=== PATIENT | male | born 1965 | race American Indian/Alaskan Native ===

== ENCOUNTER 2021-08-19 10:51 | Inpatient (IN) | payer OTHER, MEDICARE ==
[2021-08-19] MEDS ORDERED: cloNIDine 0.2 MG TAB PO ONE (11:40)
--- NOTE | 2021-08-19 11:45 | Emergency Department Report ---
HPI - General Chief Complaint: Weakness Time Seen by Provider: 08/19/21 11:25 - [facility] HPI: Room 19 The patient is a 56-year-old male present with a chief complaint of fatigue. Patient is a poor historian and falls asleep frequently during the interview s tates that he came to the emergency department because he has felt diffusely weak for the past 2 to 3 days. Patient denies any form of pain including abdominal pain or chest pain. Patient denies fever cough or shortness of breath. Patient states he has been vaccinated against Covid receiving the [place] vaccine but he is unable to tell me when. Patient does have a history end-stage renal disease and states he was last dialyzed yesterday ED Past Medical Hx - Past Medical History Previous Medical History?: Yes Hx Hypertension: Yes Hx Renal Disease: Yes (ESRD, HD Q , , sat Dr Vázquez) Hx Psychiatric Treatment: Yes (PTSD) - Family History Family history: no significant - Social History Smoking Status: Never Smoker Substance Use Type: None - Medications Home Medications: Home Medications Medication Instructions Recorded Confirmed Last Taken Type Acetaminophen/Codeine [Tylenol #3] 1 tab PO Q4-6H PRN #20 tab 01/24/15 Unknown Rx methOCARBAMOL [Robaxin] 750 mg PO Q8H PRN #21 tablet 01/24/15 Unknown Rx ED Review of Systems ROS: Stated complaint: weakness Other details as noted in HPI Constitutional: malaise, weakness. denies: fever Eyes: denies: eye pain Respiratory: denies: no symptoms reported, cough, shortness of breath Cardiovascular: denies: chest pain Endocrine: no symptoms reported Gastrointestinal: denies: abdominal pain Genitourinary: denies: testicular pain Musculoskeletal: denies: back pain Neurological: denies: headache Physical Exam - Physical Exam Vital Signs: Vital Signs 08/19/21 11:07 Temperature 98.2 F Pulse Rate 90 Respiratory 16 Rate Blood Pressure 222/111 [Right] O2 Sat by Pulse 98 Oximetry Physical Exam: GENERAL: The patient is well-developed well-nourished male lying on stretcher appearing fatigued requiring frequent reawakening. [] HEENT: Normocephalic. Atraumatic. Extraocular motions are intact. Patient has moist mucous membranes. NECK: Supple. No meningitic signs are noted. Trachea midline CHEST/LUNGS: Clear to auscultation. There is no respiratory distress noted. HEART/CARDIOVASCULAR: Regular. There is no tachycardia. There is no gallop rub or murmur. ABDOMEN: Abdomen is soft, nontender. Patient has normal bowel sounds. There is no abdominal distention. SKIN: There is no rash. There is no edema. There is no diaphoresis. NEURO: The patient is asleep but awakens to voice and light touch. Patient frequently falls back to sleep in the middle of answering questions. The patient is cooperative. The patient has no focal neurologic deficits. The patient has normal speech. Cranial nerves II through XII grossly intact MUSCULOSKELETAL: There is no evidence of acute injury. ED Course Vital Signs 08/19/21 11:07 Temperature 98.2 F Pulse Rate 90 Respiratory 16 Rate Blood Pressure 222/111 [Right] O2 Sat by Pulse 98 Oximetry ED Medical Decision Making - Lab Data Result diagrams: 08/19/21 12:04 08/19/21 12:04 Laboratory Tests 08/19/21 08/19/21 08/19/21 12:04 12:04 12:04 WBC 4.4 L RBC 3.41 L Hgb 10.6 L Hct 32.6 L MCV 96 H MCH 31 MCHC 33 RDW 16.3 H Plt Count 102 L Lymph % (Auto) 15.2 [place] % (Auto) 7.7 H Eos % (Auto) 1.7 Baso % (Auto) 1.0 Lymph # (Auto) 0.7 L [place] # (Auto) 0.3 Eos # (Auto) 0.1 Baso # (Auto) 0.0 Seg Neutrophils % 74.4 H Seg Neutrophils # 3.3 Sodium 122 L Potassium 5.2 H Chloride 90.6 L Carbon Dioxide 14 L Anion Gap 23 BUN 32 H Creatinine 8.3 H Estimated GFR 8 BUN/Creatinine Ratio 4 Glucose 75 Lactic Acid 0.60 L Calcium 8.4 Magnesium Total Bilirubin 0.60 AST 14 ALT < 5 L Alkaline Phosphatase 85 Ammonia Total Creatine Kinase 126 CK-MB (CK-2) 6.0 H CK-MB (CK-2) Rel Index 4.7 H Troponin T 0.165 H* Total Protein 7.3 Albumin 3.7 L Albumin/Globulin Ratio 1.0 Triglycerides 68 Cholesterol 111 LDL Cholesterol Direct 21 L HDL Cholesterol 79 H Cholesterol/HDL Ratio 1.40 TSH Free T4 Plasma/Serum Alcohol 08/19/21 08/19/2108/19/21 12:04 12:04 12:04 WBC RBC Hgb Hct MCV MCH MCHC RDW Plt Count Lymph % (Auto) [place] % (Auto) Eos % (Auto) Baso % (Auto) Lymph # (Auto) [place] # (Auto) Eos # (Auto) Baso # (Auto) Seg Neutrophils % Seg Neutrophils # Sodium Potassium Chloride Carbon Dioxide Anion Gap BUN Creatinine Estimated GFR BUN/Creatinine Ratio Glucose Lactic Acid Calcium Magnesium 2.00 Total Bilirubin AST ALT Alkaline Phosphatase Ammonia Total Creatine Kinase CK-MB (CK-2) CK-MB (CK-2) Rel Index Troponin T Total Protein Albumin Albumin/Globulin Ratio Triglycerides Cholesterol LDL Cholesterol Direct HDL Cholesterol Cholesterol/HDL Ratio TSH 0.483 Free T4 0.92 Plasma/Serum Alcohol < 0.01 08/19/21 12:04 WBC RBC Hgb Hct MCV MCH MCHC RDW Plt Count Lymph % (Auto) [place] % (Auto) Eos % (Auto) Baso % (Auto) Lymph # (Auto) [place] # (Auto) Eos # (Auto) Baso # (Auto) Seg Neutrophils % Seg Neutrophils # Sodium Potassium Chloride Carbon Dioxide Anion Gap BUN Creatinine Estimated GFR BUN/Creatinine Ratio Glucose Lactic Acid Calcium Magnesium Total Bilirubin AST ALT Alkaline Phosphatase Ammonia 45.0 Total Creatine Kinase CK-MB (CK-2) CK-MB (CK-2) Rel Index Troponin T Total Protein Albumin Albumin/Globulin Ratio Triglycerides Cholesterol LDL Cholesterol Direct HDL Cholesterol Cholesterol/HDL Ratio TSH Free T4 Plasma/Serum Alcohol - EKG Data -: EKG Interpreted by Pa EKG shows normal: sinus rhythm, axis Rate: normal (82 bpm) - EKG Data When compared to previous EKG there are: previous EKG unavailable Interpretation: other (No ischemic changes seen) - Differential Diagnosis Metabolic encephalopathy, hypertensive urgency, Critical care attestation.: If time is entered above; I have spent that time in minutes in the direct care of this critically ill patient, excluding procedure time. ED Disposition Clinical Impression: Hyponatremia, Altered mental status, Hypertension Disposition: ADMITTED INPATIENT Is pt being admited?: Yes Does the pt Need Aspirin: Yes Condition: Stable Instructions: Hypertension (ED) Referrals: PRIMARY CARE,MD [Primary Care Provider] - 3-5 Days Time of Disposition: 14:54 (Hospitalist notified (Dr. Sweeney))
[2021-08-19 12:33] LABS: Eosinophils # (Auto) 0.1 K/mm3 (0.0-0.4); Eosinophils % (Auto) 1.7 % (0.0-4.3); Hematocrit 32.6 % (35.5-45.6); Hemoglobin 10.6 gm/dl (11.8-15.2); Lymphocytes # (Auto) 0.7 K/mm3 (1.2-5.4); Lymphocytes % (Auto) 15.2 % (13.4-35.0); Mean Corpuscular HGB Conc 33 % (32-34); Mean Corpuscular Volume 96 fl (84-94); Monocytes # (Auto) 0.3 K/mm3 (0.0-0.8); Monocytes % (Auto) 7.7 % (0.0-7.3); Platelet Count 102 K/mm3 (140-440); Red Blood Count 3.41 M/mm3 (3.65-5.03); Red Cell Distribution Width 16.3 % (13.2-15.2)
--- NOTE | 2021-08-19 12:33 | Cat Scan Report ---
CT BRAIN: 08/19/2021 INDICATION / CLINICAL INFORMATION: Altered mental status. COMPARISON: None available. FINDINGS: BRAIN/INTRACRANIAL STRUCTURES: Unenhanced CT images of the brain demonstrate no evidence of acute abn ormality. Ventricles and sulci are somewhat prominent in size for a patient of this age, consistent with some u nderlying diffuse cerebral atrophy. There is no evidence of acute large vessel territory ischemic injury, hemorrhage, or mass. There are no abnormal extra-axial fluid collections. Atherosclerotic vascular calcifications are present in the distal internal carotid arteries. EXTRACRANIAL STRUCTURES: Unremarkable. IMPRESSION: No acute abnormality. All CT scans at this location are performed using dose reduction to ALARA by means of automated expos ure control. Signer Name: Rohan Pickens MD Signed: 08/19/2021 12:29 PM Workstation Name: [id number]
[2021-08-19 12:44] LABS: Albumin 3.7 g/dL (3.9-5); Blood Urea Nitrogen 32 mg/dL (9-20); Calcium 8.4 mg/dL (8.4-10.2); Hemolysis Index 47
[2021-08-19 12:45] LABS: Alanine Aminotransferase < 5 units/L (7-56); BUN/Creatinine Ratio 4
[2021-08-19 12:48] LABS: Free T4 (Free Thyroxine) 0.92 ng/dL (0.76-1.46)
[2021-08-19 13:05] LABS: HDL Cholesterol 79 mg/dL (40-59); LDL Cholesterol,Direct 21 mg/dL (50-130)
[2021-08-19] MEDS ORDERED: SODIUM CHLORIDE 0.9% 1000 ML 1,000 ML IV ONE ×2 (13:39)
[2021-08-19] MEDS ORDERED: SODIUM CHLORIDE 0.9% 500 ML 500 ML IV ONE (14:32)
[2021-08-19] MEDS ORDERED: ASPIRIN 325 MG TAB PO ONE (15:31)
[2021-08-19] MEDS: hydrALAZINE 20 MG/1 ML INJ IV PRN (21:56)
--- NOTE | 2021-08-19 23:43 | History and Physical Report ---
History of Present Illness Date of examination: 08/19/21 Date of admission: 08/19/21 14:53 Chief complaint: Severe weakness for 1 week History of present illness: The patient is a 56-year-old male present with a chief complaint of fatigue. Patient is a poor historian and falls asleep frequently during the interview states that he came to the emergency department because he has felt diffusely weak for the past 2 to 3 days. Patient denies any form of pain including abdominal pain or chest pain. Patient denies fever cough or shortness of breath. Patient states he has been vaccinated against Covid receiving the [place] vaccine but he is unable to tell me when. Patient does have a history end-stage renal disease and states he was last dialyzed yesterday - Past Medical History --Previous Medical History?: Yes --Hypertension: Yes --Renal Disease: Yes (ESRD, HD Q , , sat Dr Vázquez) --Psychiatric Treatment: Yes (PTSD) - Family History --Family history: no significant - Social History --Smoking Status: Never Smoker --Substance Use Type: None - Medications Home Medications: Home Medications Medication Instructions Recorded Confirmed Last Taken Type Acetaminophen/Codeine [Tylenol #3] 1 tab PO Q4-6H PRN #20 tab 01/24/15 Unknown Rx methOCARBAMOL [Robaxin] 750 mg PO Q8H PRN #21 tablet 01/24/15 Unknown Rx Review of Systems ROS: Stated complaint: weakness Other details as noted in HPI Constitutional: malaise, weakness. denies: fever Eyes: denies: eye pain Respiratory: denies: no symptoms reported, cough, shortness of breath Cardiovascular: denies: chest pain Endocrine: no symptoms reported Gastrointestinal: denies: abdominal pain Genitourinary: denies: testicular pain Musculoskeletal: denies: back pain Neurological: denies: headache Medications and Allergies Allergies Allergy/AdvReac Type Severity Reaction Status Date / Time ampicillin AdvReac Unknown Verified 01/24/15 20:35 Home Medications Medication Instructions Recorded Confirmed Last Taken Type Acetaminophen/Codeine [Tylenol #3] 1 tab PO Q4-6H PRN #20 tab 01/24/15 Unknown Rx methOCARBAMOL [Robaxin] 750 mg PO Q8H PRN #21 tablet 01/24/15 Unknown Rx Active Meds: Active Medications Hydralazine HCl (Hydralazine 20 Mg/1 Ml Inj) 10 mg IV Q6HR PRN PRN Reason: Hypertension Last Admin: 08/19/21 21:56 Dose: 10 mg Documented by: Exam - Constitutional Vitals: Temp Pulse Resp BP Pulse Ox 98.2 F 88 16 210/105 92 08/19/21 11:07 08/19/21 21:30 08/19/21 21:30 08/19/21 21:30 08/19/21 21:30 General appearance: Present: no acute distress, well-nourished - EENT Eyes: Present: PERRL ENT: hearing intact, clear oral mucosa - Neck Neck: Present: supple, normal ROM - Respiratory Respiratory effort: normal Respiratory: bilateral: CTA - Cardiovascular Heart rate: 78 Rhythm: regular Heart Sounds: Present: S1 & S2. Absent: rub, click - Extremities Extremities: pulses symmetrical, No edema Peripheral Pulses: within normal limits - Abdominal General gastrointestinal: Present: soft, non-tender, non-distended, normal bowel sounds Male genitourinary: Present: normal - Integumentary Integumentary: Present: clear, warm, dry - Musculoskeletal Musculoskeletal: gait normal, strength equal bilaterally - Psychiatric Psychiatric: appropriate mood/affect, intact judgment & insight - Neurologic Neurologic: CNII-XII intact, moves all extremities - Allied Health Allied health notes reviewed: nursing, case management HEART Score - HEART Score Troponin: Troponin T 0.165 ng/mL (0.00-0.029) H* 08/19/21 12:04 Results - Labs CBC & Chem 7: 08/20/21 04:35 08/20/21 04:35 Labs: Laboratory Last Values WBC 4.4 K/mm3 (4.5-11.0) L 08/19/21 12:04 RBC 3.41 M/mm3 (3.65-5.03) L 08/19/21 12:04 Hgb 10.6 gm/dl (11.8-15.2) L 08/19/21 12:04 Hct 32.6 % (35.5-45.6) L 08/19/21 12:04 MCV 96 fl (84-94) H 08/19/21 12:04 MCH 31 pg (28-32) 08/19/21 12:04 MCHC 33 % (32-34) 08/19/21 12:04 RDW 16.3 % (13.2-15.2) H 08/19/21 12:04 Plt Count 102 K/mm3 (140-440) L 08/19/21 12:04 Lymph % (Auto) 15.2 % (13.4-35.0) 08/19/21 12:04 [place] % (Auto) 7.7 % (0.0-7.3) H 08/19/21 12:04 Eos % (Auto) 1.7 % (0.0-4.3) 08/19/21 12:04 Baso % (Auto) 1.0 % (0.0-1.8) 08/19/21 12:04 Lymph # (Auto) 0.7 K/mm3 (1.2-5.4) L 08/19/21 12:04 [place] # (Auto) 0.3 K/mm3 (0.0-0.8) 08/19/21 12:04 Eos # (Auto) 0.1 K/mm3 (0.0-0.4) 08/19/21 12:04 Baso # (Auto) 0.0 K/mm3 (0.0-0.1) 08/19/21 12:04 Seg Neutrophils % 74.4 % (40.0-70.0) H 08/19/21 12:04 Seg Neutrophils # 3.3 K/mm3 (1.8-7.7) 08/19/21 12:04 Sodium 122 mmol/L (137-145) L 08/19/21 12:04 Potassium 5.2 mmol/L (3.6-5.0) H 08/19/21 12:04 Chloride 90.6 mmol/L (98-107) L 08/19/21 12:04 Carbon Dioxide 14 mmol/L (22-30) L 08/19/21 12:04 Anion Gap 23 mmol/L 08/19/21 12:04 BUN 32 mg/dL (9-20) H 08/19/21 12:04 Creatinine 8.3 mg/dL (0.8-1.3) H 08/19/21 12:04 Estimated GFR 8 ml/min 08/19/21 12:04 BUN/Creatinine Ratio 4 % 08/19/21 12:04 Glucose 75 mg/dL (75-100) 08/19/21 12:04 Lactic Acid 0.60 mmol/L (0.7-2.0) L 08/19/21 12:04 Calcium 8.4 mg/dL (8.4-10.2) 08/19/21 12:04 Magnesium 2.00 mg/dL (1.7-2.3) 08/19/21 12:04 Total Bilirubin 0.60 mg/dL (0.1-1.2) 08/19/21 12:04 AST 14 units/L (5-40) 08/19/21 12:04 ALT < 5 units/L (7-56) L 08/19/21 12:04 Alkaline Phosphatase 85 units/L (35-129) 08/19/21 12:04 Ammonia 45.0 umol/L (25-60) 08/19/21 12:04 Total Creatine Kinase 126 units/L (55-170) 08/19/21 12:04 CK-MB (CK-2) 6.0 ng/mL (0.0-4.0) H 08/19/21 12:04 CK-MB (CK-2) Rel Index 4.7 (0-4) H 08/19/21 12:04 Troponin T 0.165 ng/mL (0.00-0.029) H* 08/19/21 12:04 Total Protein 7.3 g/dL (6.3-8.2) 08/19/21 12:04 Albumin 3.7 g/dL (3.9-5) L 08/19/21 12:04 Albumin/Globulin Ratio 1.0 % 08/19/21 12:04 Triglycerides 68 mg/dL (2-149) 08/19/21 12:04 Cholesterol 111 mg/dL (50-199) 08/19/21 12:04 LDL Cholesterol Direct 21 mg/dL (50-130) L 08/19/21 12:04 HDL Cholesterol 79 mg/dL (40-59) H 08/19/21 12:04 Cholesterol/HDL Ratio 1.40 % 08/19/21 12:04 TSH 0.483 mlU/mL (0.270-4.200) 08/19/21 12:04 Free T4 0.92 ng/dL (0.76-1.46) 08/19/21 12:04 Plasma/Serum Alcohol < 0.01 % (0-0.07) 08/19/21 12:04 Short CBC 08/19/21 08/20/21 Range/Units 12:04 04:35 WBC 4.4 L 3.8 L (4.5-11.0) K/mm3 Hgb 10.6 L 9.5 L (11.8-15.2) gm/dl Hct 32.6 L 29.1 L (35.5-45.6) % Plt Count 102 L 86 L (140-440) K/mm3 BMP 08/19/21 08/19/21 08/20/21 12:04 23:31 04:35 Sodium 122 L 127 L 126 L Potassium 5.2 H 4.3 4.5 Chloride 90.6 L 95.7 L 94.7 L Carbon Dioxide 14 L 14 L 14 L BUN 32 H 34 H 36 H Creatinine 8.3 H 9.8 H 9.1 H Glucose 75 77 75 Calcium 8.4 8.3 L 8.1 L Cardiac Enzymes 08/19/21 08/19/21 Range/Units 12:04 23:31 Total Creatine Kinase 126 (55-170) units/L CK-MB (CK-2) 6.0 H (0.0-4.0) ng/mL Troponin T 0.165 H* 0.211 H* D (0.00-0.029) ng/mL Liver Function 08/19/21 08/19/21 08/20/21 Range/Units 12:04 23:31 04:35 Total Bilirubin 0.60 0.80 0.80 (0.1-1.2) mg/dL AST 14 11 10 (5-40) units/L ALT < 5 L < 5 L < 5 L (7-56) units/L Alkaline Phosphatase 85 85 80 (35-129) units/L Albumin 3.7 L 3.5 L 3.2 L (3.9-5) g/dL - Imaging and Cardiology Imaging and Cardiology: Head CT No acute abnormality. Assessment and Plan Advance Directives: Yes (Full code) VTE prophylaxis?: Chemical Plan of care discussed with patient/family: Yes - Patient Problems (1) Acute encephalopathy Current Visit: Yes Status: Acute Plan to address problem: Secondary to hyponatremia Hyponatremia to be corrected Hemodialysis (2) Hypertension Current Visit: Yes Status: Chronic Qualifiers: Hypertension type: primary hypertension Qualified Code(s): I10 - Essential (primary) hypertension Plan to address problem: Continue antihypertensives (3) End stage renal disease on dialysis Current Visit: Yes Status: Chronic Plan to address problem: [id number] hemodialysis Increase ultrafiltration Possible dilutional hyponatremia (4) DVT prophylaxis Current Visit: Yes Status: Acute Plan to address problem: On heparin and GI prophylaxis
[2021-08-19] MEDS ORDERED: SODIUM CHLORIDE 0.9% 1000 ML 1,000 ML IV SCH (23:45)
[2021-08-19] MEDS ORDERED: ACETAMINOPHEN 325 MG TAB PO PRN (23:46)
[2021-08-19] MEDS ORDERED: ONDANSETRON 4 MG/2 ML INJ IV PRN (23:46)
[2021-08-19] MEDS ORDERED: HYDROmorphone 1 MG/1 ML INJ IV PRN (23:49)
[2021-08-19] MEDS ORDERED: oxyCODONE /ACETAMINOPHEN 5-325MG TAB PO PRN (23:49)
[2021-08-19] MEDS ORDERED: DEXTROSE 50% IN WATER (25GM) 50 ML SYRINGE IV ONE (23:54)
[2021-08-20 00:01] LABS: Albumin 3.5 g/dL (3.9-5); Blood Urea Nitrogen 34 mg/dL (9-20); Calcium 8.3 mg/dL (8.4-10.2); Hemolysis Index 5
[2021-08-20 00:09] LABS: Alanine Aminotransferase < 5 units/L (7-56); BUN/Creatinine Ratio 3
[2021-08-20] MEDS: hydrALAZINE 20 MG/1 ML INJ IV PRN ×4 (00:31→23:31)
[2021-08-20 06:13] LABS: Albumin 3.2 g/dL (3.9-5); Blood Urea Nitrogen 36 mg/dL (9-20); Calcium 8.1 mg/dL (8.4-10.2); Hemolysis Index 3
[2021-08-20 06:16] LABS: Hematocrit 29.1 % (35.5-45.6); Hemoglobin 9.5 gm/dl (11.8-15.2); Mean Corpuscular HGB Conc 33 % (32-34); Mean Corpuscular Volume 96 fl (84-94); Red Blood Count 3.04 M/mm3 (3.65-5.03); Red Cell Distribution Width 15.8 % (13.2-15.2)
[2021-08-20 06:17] LABS: Platelet Count 86 K/mm3 (140-440)
[2021-08-20 06:18] LABS: Alanine Aminotransferase < 5 units/L (7-56); BUN/Creatinine Ratio 4
[2021-08-20 07:34] LABS: Total Cells Counted 100
[2021-08-20 07:35] LABS: Platelet Estimate Consistent w Auto; RBC Morphology Normal
--- NOTE | 2021-08-20 08:42 | Electrocardiograph Report ---
[facility] Test Date: 2021-08-19 Test Time: 15:27:16 Pat Name: NU ZHANG Department: Room: A465 Gender: M Diet Therapist: MIRA : 1965 Requested By: VIVEK HUGGINS Order Number: [id number] Reading MD: Kyle Quiroz Measurements Intervals [place] Rate: 82 P: 66 AK: 193 QRS: 73 QRSD: 154 T: 56 QT: 446 QTc: 520 Interpretive Statements Sinus rhythm Probable left atrial enlargement Right bundle branch block No previous ECG available for comparison Electronically Signed On 08-20-2021 8:41:24 EST by Kyle Quiroz
[2021-08-20] MEDS: HEPARIN 5,000 UNIT/1 ML VIAL SUB-Q SCH ×2 (09:07→21:10)
[2021-08-20] MEDS: FAMOTIDINE 10 MG TAB PO SCH ×2 (09:07→21:09)
--- NOTE | 2021-08-20 10:59 | Consultation ---
History of Present Illness - Reason for Consult Consult date: 08/20/21 end stage renal disease, metabolic acidosis - History of Present Illness The patient is a 56 YO male with history significant for HTN, Anemia, Depression, Etoh use and ESRD on HD(TTS) who presented to [facility] ED on 08/19 from hemodialysis unit with complaint of fatigue. Patient is a poor historian. Per pt he was found altered in the hemodialysis unit and was sent to the ED. He felt weak for the past 2 to 3 days. Patient denies any pain, N, V, D, fever, chills, cough, cp, sob or syncope. Patient states he has been vaccinated against Covid receiving the [place] vaccine. Labs and imaging noted. Nephrology was consulted for ESRD management. Past History Past Medical History: other (See HPI.) Medications and Allergies Allergies Allergy/AdvReac Type Severity Reaction Status Date / Time ampicillin AdvReac Rash Verified 08/21/21 14:35 lisinopril AdvReac Rash Verified 08/21/21 14:35 meloxicam AdvReac Rash Verified 08/21/21 14:35 Sulfa (Sulfonamide AdvReac Rash Verified 08/21/21 14:35 Antibiotics) tuberculin,PPD,multi-puncture AdvReac Rash Verified 08/21/21 14:35 Home Medications Medication Instructions Recorded Confirmed Last Taken Type Escitalopram [Lexapro] 5 mg PO DAILY tablet 08/21/21 Unknown Rx Famotidine [Pepcid] 10 mg PO BID tablet 08/21/21 Unknown Rx Ferrous Sulfate [Feosol 325 MG tab] 325 mg PO TID tablet 08/21/21 Unknown Rx Omeprazole 40 mg PO QDAY #30 08/21/21 Unknown Rx Tamsulosin [Flomax] 0.4 mg PO QDAY #30 capsule 08/21/21 Unknown Rx carvediloL [Coreg] 12.5 mg PO BID #60 tablet 08/21/21 Unknown Rx sevelamer HCL [Sevelamer HCl] 800 mg PO TID #90 08/21/21 Unknown Rx Active Meds: Active Medications Acetaminophen (Acetaminophen 325 Mg Tab) 650 mg PO Q4H PRN PRN Reason: Pain MILD(1-3)/Fever >100.5/AMBROSIO Famotidine (Famotidine 10 Mg Tab) 10 mg PO BID EDITH Last Admin: 08/20/21 09:07 Dose: 10 mg Documented by: Heparin Sodium (Porcine) (Heparin 5,000 Unit/1 Ml Vial) 5,000 unit SUB-Q Q12HR [facility] Last Admin: 08/20/21 09:07 Dose: 5,000 unit Documented by: Hydralazine HCl (Hydralazine 20 Mg/1 Ml Inj) 10 mg IV Q6HR PRN PRN Reason: Hypertension Last Admin: 08/20/21 09:07 Dose: 10 mg Documented by: Hydromorphone HCl (Hydromorphone 1 Mg/1 Ml Inj) 0.5 mg IV Q3H PRN PRN Reason: Pain , Severe (7-10) Methocarbamol (Methocarbamol 750 Mg Tab) 750 mg PO Q8H PRN PRN Reason: Muscle Spasm Ondansetron HCl (Ondansetron 4 Mg/2 Ml Inj) 4 mg IV Q8H PRN PRN Reason: Nausea And Vomiting Oxycodone/Acetaminophen (Oxycodone /Acetaminophen 5-325mg Tab) 1 tab PO Q6H PRN PRN Reason: Pain, Moderate (4-6) Sodium Chloride (Sodium Chloride 0.9% 10 Ml Flush Syringe) 10 ml IV BID [facility] Last Admin: 08/20/21 09:07 Dose: 10 ml Documented by: Sodium Chloride (Sodium Chloride 0.9% 10 Ml Flush Syringe) 10 ml IV PRN PRN PRN Reason: LINE FLUSH Last Admin: 08/20/21 00:33 Dose: 10 ml Documented by: Review of Systems All systems: negative Exam - Vital Signs Vital signs: Vital Signs Pulse Resp Pulse Ox 90 14 98 08/19/21 11:04 08/19/21 11:04 08/19/21 11:04 Results - Lab Results 08/20/21 04:35 08/21/21 05:01 Most recent lab results Calcium 8.1 mg/dL (8.4-10.2) L 08/20/21 04:35 Magnesium 2.00 mg/dL (1.7-2.3) 08/19/21 12:04 Assessment and Plan 1. ESRD: Patient is on maintenance hemodialysis three times a week, TTS schedule. Last outpatient dialysis on 08/16. Hemodialysis: . HD today. 2. FEN: Anion-gap metabolic acidosis, HD today. Hyponatremia, monitor. Monitor lytes and volume status. 3. Anemia: Epogen with HD as needed. 4.Uncontrolled Hypertension: Resume home meds. Volume control thru HD. MonitorBP. 5.Acute metabolic encephalopathy, POA: Monitor. Subjective: Patient was seen and examined at the bedside. Examination: General appearance: well-developed, well-nourished, appears stated age, not in distress HEENT: ATNC, pupils equal Neck: trachea midline Respiratory: Clear to Auscultation Cardiology: regular, S1S2, no murmur Gastrointestinal: normoactive bowel sounds, not tender Integumentary: no rash, warm and dry Neurologic: somnolent, able to move extremities Ext: no edema, R BKA Hemodialysis access: R IJ tunnel catheter, L FA AVF
--- NOTE | 2021-08-20 11:04 | Event Note ---
Date: 08/20/21 Hemodialysis consent obtained from patient.
[2021-08-20] MEDS ORDERED: SODIUM CHLORIDE 0.9% 100 ML IV PRN (11:30)
[2021-08-20] MEDS ORDERED: EPOETIN ALFA-EPBX 10,000 UNIT/1 ML VIAL SUB-Q PRN (11:30)
[2021-08-20] MEDS ORDERED: HEPARIN 10,000 UNITS/10 ML VIAL IV PRN (11:30)
[2021-08-20] MEDS ORDERED: NON-FORMULARY EACH (Acetaminophen [Tylenol] 325 MG Capsule) PO PRN (18:47)
[2021-08-20] MEDS ORDERED: NALTREXONE 50 MG PO SCH (19:00)
[2021-08-20] MEDS ORDERED: NON-FORMULARY EACH (Omeprazole [Omeprazole] 40 MG Capsule.Dr) PO SCH (19:00)
[2021-08-20 19:01] LABS: Hepatitis C Virus Antibody Non-Reactive (NonReactive)
[2021-08-20 19:05] LABS: Hepatitis B Surface Antigen Nonreactive (Negative)
[2021-08-20] MEDS ORDERED: ACETAMINOPHEN 500 MG TAB PO PRN (19:31)
[2021-08-20] MEDS ORDERED: NON-FORMULARY EACH (Sevelamer Hcl [Sevelamer Hcl] 800 MG Tablet) PO SCH (20:00)
[2021-08-20] MEDS: FERROUS SULFATE 325 MG TAB PO SCH (21:09)
[2021-08-20] MEDS: TAMSULOSIN 0.4 MG CAP PO SCH (21:10)
[2021-08-20] MEDS: carvediloL 12.5 MG TAB PO SCH (21:10)
[2021-08-21] MEDS: hydrALAZINE 20 MG/1 ML INJ IV PRN (05:18)
[2021-08-21 06:23] LABS: Calcium 8.2 mg/dL (8.4-10.2)
--- NOTE | 2021-08-21 08:10 | Progress Note ---
Assessment and Plan - Patient Problems (1) Acute encephalopathy Current Visit: Yes Status: Acute Plan to address problem: Secondary to hyponatremia Hyponatremia to be corrected Hemodialysis (2) Hypertension Current Visit: Yes Status: Chronic Qualifiers: Hypertension type: primary hypertension Qualified Code(s): I10 - Essential (primary) hypertension Plan to address problem: Continue antihypertensives (3) End stage renal disease on dialysis Current Visit: Yes Status: Chronic Plan to address problem: [id number] hemodialysis Increase ultrafiltration Possible dilutional hyponatremia (4) DVT prophylaxis Current Visit: Yes Status: Acute Plan to address problem: On heparin and GI prophylaxis Subjective Date of service: 08/20/21 Objective - Constitutional Vitals: Vital Signs - 12hr 08/20/21 08/20/21 08/21/21 20:42 23:17 03:53 Temperature 98.6 F 98.4 F Pulse Rate 92 H 87 Respiratory 18 18 Rate Blood Pressure 181/86 188/88 O2 Sat by Pulse 94 93 95 Oximetry General appearance: Present: no acute distress, well-nourished - EENT Eyes: PERRL, EOM intact ENT: hearing intact, clear oral mucosa Ears: bilateral: normal - Neck Neck: supple, normal ROM - Respiratory Respiratory effort: normal Respiratory: bilateral: CTA - Breasts Breasts: normal - Cardiovascular Rhythm: regular Heart Sounds: Present: S1 & S2. Absent: gallop, rub Extremities: pulses intact, No edema, normal color, Full ROM - Gastrointestinal General gastrointestinal: Present: soft, non-tender, non-distended, normal bowel sounds - Genitourinary Male genitourinary: normal - Integumentary Integumentary: clear, warm, dry - Musculoskeletal Musculoskeletal: 1, strength equal bilaterally - Neurologic Neurologic: moves all extremities - Psychiatric Psychiatric: memory intact, appropriate mood/affect, intact judgment & insight - Labs CBC & Chem 7: 08/20/21 04:35 08/21/21 05:01 Labs: Abnormal lab results 08/21/21 Range/Units 05:01 Creatinine 6.7 H (0.8-1.3) mg/dL Glucose 128 H (75-100) mg/dL Calcium 8.2 L (8.4-10.2) mg/dL HEART Score - HEART Score Troponin: Troponin T 0.211 ng/mL (0.00-0.029) H* D 08/19/21 23:31
[2021-08-21] MEDS: ESCITALOPRAM 10 MG TAB PO SCH ×2 (08:42→10:08)
[2021-08-21] MEDS: ZINC SULFATE 220 MG CAP PO SCH ×2 (08:43→10:07)
[2021-08-21] MEDS: FERROUS SULFATE 325 MG TAB PO SCH (08:43)
--- NOTE | 2021-08-21 09:20 | Progress Note ---
Assessment and Plan 1. ESRD: Patient is on maintenance hemodialysis three times a week, TTS schedule. Last outpatient dialysis on 08/16. Hemodialysis: 08/20. HD today. 2. FEN: Anion-gap metabolic acidosis, improved with HD. Hyponatremia, improved, monitor. Monitor lytes and volume status. 3. Anemia: Epogen with HD as needed. 4.Uncontrolled Hypertension: Volume control thru HD. MonitorBP. 5.Acute metabolic encephalopathy, POA: Resolved. Monitor. Subjective: Patient was seen and examined at the bedside. Doing better. Examination: General appearance: well-developed, well-nourished, appears stated age, not in distress HEENT: ATNC, pupils equal Neck: trachea midline Respiratory: Clear to Auscultation Cardiology: regular, S1S2, no murmur Gastrointestinal: normoactive bowel sounds, not tender Integumentary: no rash, warm and dry Neurologic: alert, able to move extremities Ext: no edema, R BKA Hemodialysis access: R IJ tunnel catheter, L FA AVF Subjective Date of service: 08/21/21 Objective - Vital Signs Vital signs: Vital Signs - 12hr 08/20/21 08/21/21 08/21/21 23:17 03:53 08:34 Temperature 98.6 F 98.4 F Pulse Rate 92 H 87 Respiratory 18 18 Rate Blood Pressure 181/86 188/88 O2 Sat by Pulse 93 95 94 Oximetry - Lab 08/20/21 04:35 08/21/21 05:01 Most recent lab results Calcium 8.2 mg/dL (8.4-10.2) L 08/21/21 05:01 Magnesium 2.00 mg/dL (1.7-2.3) 08/19/21 12:04 Medications & Allergies - Medications Allergies/Adverse Reactions: Allergies ampicillin Adverse Reaction (Verified 08/21/21 14:35) Rash lisinopril Adverse Reaction (Verified 08/21/21 14:35) Rash meloxicam Adverse Reaction (Verified 08/21/21 14:35) Rash Sulfa (Sulfonamide Antibiotics) Adverse Reaction (Verified 08/21/21 14:35) Rash tuberculin,PPD,multi-puncture Adverse Reaction (Verified 08/21/21 14:35) Rash Home Medications: Home Medications Medication Instructions Recorded Confirmed Last Taken Type Escitalopram [Lexapro] 5 mg PO DAILY tablet 08/21/21 Unknown Rx Famotidine [Pepcid] 10 mg PO BID tablet 08/21/21 Unknown Rx Ferrous Sulfate [Feosol 325 MG tab] 325 mg PO TID tablet 08/21/21 Unknown Rx Omeprazole 40 mg PO QDAY #30 08/21/21 Unknown Rx Tamsulosin [Flomax] 0.4 mg PO QDAY #30 capsule 08/21/21 Unknown Rx carvediloL [Coreg] 12.5 mg PO BID #60 tablet 08/21/21 Unknown Rx sevelamer HCL [Sevelamer HCl] 800 mg PO TID #90 08/21/21 Unknown Rx Active Medications: Generic Name Dose Route Start Last Admin Trade Name Freq PRN Reason Stop Dose Admin Acetaminophen 650 mg 08/19/21 23:46 Acetaminophen 325 Mg Tab PO Q4H PRN Pain MILD(1-3)/Fever >100.5/AMBROSIO Ascorbic Acid 500 mg 08/21/21 10:00 Ascorbic Acid 500 Mg Tab PO DAILY EDITH Carvedilol 12.5 mg 08/20/21 22:00 08/20/21 21:10 Carvedilol 12.5 Mg Tab PO 12.5 mg BID EDITH Administration Escitalopram Oxalate 5 mg 08/20/21 19:00 08/21/21 08:42 Escitalopram 10 Mg Tab PO Not Given DAILY EDITH Famotidine 10 mg 08/20/21 10:00 08/20/21 21:09 Famotidine 10 Mg Tab PO 10 mg BID EDITH Administration Ferrous Sulfate 325 mg 08/20/21 20:00 08/21/21 08:43 Ferrous Sulfate 325 Mg Tab PO Not Given TID EDITH Heparin Sodium (Porcine) 5,000 unit 08/20/21 10:00 08/20/21 21:10 Heparin 5,000 Unit/1 Ml Vial SUB-Q 5,000 unit Q12HR EDITH Administration Heparin Sodium (Porcine) 3,000 unit 08/20/21 11:30 Heparin 10,000 Units/10 Ml Vial IV ENRIQUE PRN hemodialysis Hydralazine HCl 10 mg 08/19/21 21:42 08/21/21 05:18 Hydralazine 20 Mg/1 Ml Inj IV 10 mg Q6HR PRN Administration Hypertension Hydromorphone HCl 0.5 mg 08/19/21 23:49 Hydromorphone 1 Mg/1 Ml Inj IV Q3H PRN Pain , Severe (7-10) Sodium Chloride 100 mls @ 999 mls/hr 08/20/21 11:30 Nacl 0.9% IV ENRIQUE PRN Hypotension Methocarbamol 750 mg 08/19/21 23:45 Methocarbamol 750 Mg Tab PO Q8H PRN Muscle Spasm Miscellaneous Medication 25 mg 08/20/21 19:00 Naltrexone (Nf) PO QDAY EDITH Ondansetron HCl 4 mg 08/19/21 23:46 Ondansetron 4 Mg/2 Ml Inj IV Q8H PRN Nausea And Vomiting Oxycodone/Acetaminophen 1 tab 08/19/21 23:49 Oxycodone /Acetaminophen 5-325mg Tab PO Q6H PRN Pain, Moderate (4-6) Sodium Chloride 10 ml 08/20/21 10:00 08/20/21 21:10 Sodium Chloride 0.9% 10 Ml Flush Syringe IV 10 ml BID EDITH Administration Sodium Chloride 10 ml 08/19/21 23:46 08/20/21 00:33 Sodium Chloride 0.9% 10 Ml Flush Syringe IV 10 ml PRN PRN Administration LINE FLUSH Tamsulosin HCl 0.4 mg 08/20/21 19:00 08/20/21 21:10 Tamsulosin 0.4 Mg Cap PO 0.4 mg QDAY EDITH Administration Zinc Sulfate 220 mg 08/20/21 19:00 08/21/21 08:43 Zinc Sulfate 220 Mg Cap PO Not Given DAILY EDITH
[2021-08-21] MEDS ORDERED: ASCORBIC ACID 500 MG TAB PO SCH (10:00)
[2021-08-21] MEDS: FAMOTIDINE 10 MG TAB PO SCH (10:08)
[2021-08-21] MEDS: TAMSULOSIN 0.4 MG CAP PO SCH (10:08)
[2021-08-21] MEDS: HEPARIN 5,000 UNIT/1 ML VIAL SUB-Q SCH (10:08)
[2021-08-21] MEDS: carvediloL 12.5 MG TAB PO SCH (10:09)
[2021-08-21 14:36] VITALS: BP 199/98
== END 2021-08-21 15:17 | disposition home or self-care (01) | DRG 640 ==
LOC: ED 10:51 → 4A 14:53
PROVIDERS: ADMIT Internal Medicine; ATTEND Internal Medicine
PROC: 5A1D70Z Performance of Urinary Filtration, Intermittent, Less than 6 Hours Per Day (ICD-10-PCS; principal; 2021-08-20)
PROC: 5A1D70Z Performance of Urinary Filtration, Intermittent, Less than 6 Hours Per Day (ICD-10-PCS; 2021-08-21)
DX: E87.1 Hypo-osmolality and hyponatremia (principal); N18.6 End stage renal disease; G93.41 Metabolic encephalopathy; I12.0 Hypertensive chronic kidney disease with stage 5 chronic kidney disease or end stage renal disease; D64.9 Anemia, unspecified; F43.10 Post-traumatic stress disorder, unspecified; Z20.822 Contact with and (suspected) exposure to COVID-19
CPT/HCPCS: 36415; 70450; 80048; 80053; 80061; 80074; 80320; 82140; 82550; 82553; 82962; 83735; 84439; 84443; 84484; 85007; 85025; 93005; G0378; J3490; Q0162; G0480; J0360; J1644; J7030; J7040